=== PATIENT | female | born 1960 | race Caucasian/White ===

== ENCOUNTER 2017-12-06 12:32 | Day surgery (SDC) | payer OTHER ==
[2017-12-06] MEDS ORDERED: PROPOFOL 40 ML (14:56)
[2017-12-06] MEDS ORDERED: LIDOCAINE 2% (SDV) 5 ML INJ (14:56)
== END 2017-12-06 16:20 | disposition home or self-care (01) ==
LOC: GIL 12:32
DX: Z12.11 Encounter for screening for malignant neoplasm of colon (principal); D12.2 Benign neoplasm of ascending colon; D12.4 Benign neoplasm of descending colon; K64.8 Other hemorrhoids; K57.90 Diverticulosis of intestine, part unspecified, without perforation or abscess without bleeding; I10 Essential (primary) hypertension
CPT/HCPCS: 45380; 88305